=== PATIENT | male | born 1975 | race Caucasian/White ===

== ENCOUNTER 2018-11-20 09:00 | Inpatient (IN) | payer MEDICAID ==
--- NOTE | 2018-11-20 09:34 | EDM.PDOC ---
ED HPI GENERAL MEDICAL PROBLEM - General Chief Complaint: Abdominal Pain Stated Complaint: PANCREATITIS Time Seen by Provider: 11/20/18 09:20 Source of Information: Reports: Patient History Limitations: Reports: No Limitations - History of Present Illness INITIAL COMMENTS - FREE TEXT/NARRATIVE: 43-year-old male who is been in detox for the last 2 days, has developed abdominal pain for the past 36-48 hours. He has a history of pancreatitis in the past, usually when he gets that he just "starts drinking again and it goes away". He is going to start long-term treatment tomorrow, he was sent in to rule out pancreatitis before extending his treatment. No nausea or vomiting, no fever. Onset: Gradual Duration: Day(s): (2 days) Location: Reports: Abdomen (Generalized abdominal pain, somewhat worse in the upper abdomen) Associated Symptoms: Reports: Malaise. Denies: Cough, Fever/Chills Abdominal Pain Score (Numeric/FACES): 6 - Related Data Allergies Allergy/AdvReac Type Severity Reaction Status Date / Time No Known Allergies Allergy Verified 11/20/18 09:39 Home Meds: Home Meds Aspirin [Lo-Dose Aspirin EC] 81 mg PO DAILY 11/20/18 [History] NIFEdipine [Nifedical XL] 60 mg PO DAILY 11/20/18 [History] Naltrexone 50 mg PO DAILY 11/20/18 [History] Ramipril [Altace] 5 mg PO DAILY 11/20/18 [History] ED ROS GENERAL - Review of Systems Review Of Systems: See Below Constitutional: Denies: Fever, Chills HEENT: Denies: Vision Change Respiratory: Denies: Shortness of Breath GI/Abdominal: Reports: Abdominal Pain : Reports: No Symptoms Skin: Reports: No Symptoms Neurological: Denies: Headache ED EXAM, GI/ABD - Physical Exam Exam: See Below Exam Limited By: No Limitations General Appearance: Alert, No Apparent Distress (Looks uncomfortable but not distressed) Eyes: Bilateral: Normal Appearance (No jaundice) Respiratory/Chest: No Respiratory Distress, Lungs Clear GI/Abdominal Exam: Tender (Reacts with tenderness to palpation with mild guarding across the upper abdomen, no distention or ascites) Course - Vital Signs Last Recorded V/S: Last Vital Signs Temp 96.8 F 11/20/18 11:41 Pulse 69 11/20/18 11:41 Resp 16 11/20/18 11:41 BP 118/88 11/20/18 11:41 Pulse Ox 97 11/20/18 11:41 - Orders/Labs/Meds Orders: Active Orders 24 hr Category Date Time Status Patient Status [ADT] Routine ADT 11/20/18 11:40 Active Antiembolic Devices [RC] .Routine Care 11/20/18 11:40 Active Intake and Output [RC] QSHIFT Care 11/20/18 11:40 Active Notify Provider Vital Signs [RC] ASDIRECTED Care 11/20/18 11:40 Active Oxygen Therapy [RC] PRN Care 11/20/18 11:40 Active Up ad Liz [RC] ASDIRECTED Care 11/20/18 11:40 Active VTE/DVT Education [RC] Per Unit Routine Care 11/20/18 11:40 Active Vital Signs [RC] Q4H Care 11/20/18 11:40 Active Nothing per Oral Now Diet [DIET] Diet 11/20/18 Lunch Active CBC W/O DIFF,HEMOGRAM [HEME] AM Lab 11/21/18 05:11 Ordered COMPREHENSIVE METABOLIC PN,CMP [CHEM] AM Lab 11/21/18 05:11 Ordered LIPASE [CHEM] AM Lab 11/21/18 05:11 Ordered Acetaminophen [Tylenol] Med 11/20/18 11:40 Active 650 mg PO Q4H PRN Aspirin [Halfprin] Med 11/21/18 09:00 Active 81 mg PO DAILY Dextrose 5%-Lact Ringers w/KCl [D5 LR with 20 mEq KCl] Med 11/20/18 11:40 Active 1,000 ml IV ASDIRECTED Docusate Sodium/Sennosides [Senna Plus] Med 11/20/18 11:40 Active 1 tab PO BID PRN Folic Acid Med 11/21/18 09:00 Active 1 mg PO DAILY Ketorolac [Toradol] Med 11/20/18 10:27 Active 30 mg IVPUSH Q6H PRN LORazepam [Ativan] Med 11/20/18 11:40 Active 0.5 mg IVPUSH Q4H PRN MVI, Adult with Vitamin K [Infuvite Adult] 10 ml Med 11/20/18 10:06 Active Thiamine [Vitamin B-1] 200 mg Chromium/Copper/David/Selen/Zn [Multitrace-5 Concentrate ] 1 ml Lactated Ringers [Ringers, Lactated] 1,000 ml IV ONETIME Magnesium Hydroxide [Milk of Magnesia] Med 11/20/18 11:40 Active 30 ml PO Q12H PRN Melatonin Med 11/20/18 11:40 Ordered 9 mg PO BEDTIME PRN NIFEdipine [Procardia XL] Med 11/21/18 09:00 Ordered 60 mg PO DAILY Nicotine [Habitrol] Med 11/20/18 11:40 Ordered 21 mg TRDERM DAILY Ondansetron [Zofran ODT] Med 11/20/18 11:40 Ordered 4 mg PO Q6H PRN Ondansetron [Zofran] Med 11/20/18 11:40 Ordered 4 mg IV Q6H PRN Pantoprazole [ProTONIX IV] Med 11/20/18 11:40 Ordered 40 mg IV Q24H Potassium Chloride 20 meq Med 11/20/18 11:40 Ordered Lidocaine 1% [Xylocaine 1%] 2 ml Sodium Chloride 0.9% [Normal Saline] 100 ml IV Q2H Ramipril [Altace] Med 11/21/18 09:00 Ordered 5 mg PO DAILY Thiamine [Vitamin B-1] Med 11/21/18 09:00 Ordered 100 mg PO DAILY oxyCODONE Med 11/20/18 11:40 Ordered 5 mg PO Q4H PRN traZODone Med 11/20/18 11:40 Ordered 50 mg PO BEDTIME PRN Sequential Compression Device [OM.PC] Routine Oth 11/20/18 11:40 Ordered Resuscitation Status Routine Resus Stat 11/20/18 10:29 Ordered Medication Orders Acetaminophen (Tylenol) 650 mg PO Q4H PRN PRN Reason: Pain (Mild 1-3)/fever Aspirin (Halfprin) 81 mg PO DAILY [facility] Folic Acid (Folic Acid) 1 mg PO DAILY [facility] Multivitamins/Minerals 10 ml/Thiamine HCl 200 mg/ Chromium/Copper/Manganese/ Seleni/Zn 1 ml/ Lactated Ringer's 1,013 mls @ 500 mls/hr IV ONETIME ONE Stop: 11/20/18 12:07 Last Admin: 11/20/18 10:24 Dose: 500 mls/hr Potassium Cl/Dextrose/Lact Ringer's (D5 Lr With 20 Meq Kcl) 1,000 mls @ 100 mls /hr IV ASDIRECTED [facility] Potassium Chloride 20 meq/Lidocaine HCl 2 ml/ Sodium Chloride 112 mls @ 50 mls/ hr IV Q2H [facility] Stop: 11/20/18 15:39 Ketorolac Tromethamine (Toradol) 30 mg IVPUSH Q6H PRN PRN Reason: Pain (moderate 4-6) Stop: 11/25/18 10:27 Last Admin: 11/20/18 10:33 Dose: 30 mg Lorazepam (Ativan) 0.5 mg IVPUSH Q4H PRN PRN Reason: Anxiety Magnesium Hydroxide (Milk Of Magnesia) 30 ml PO Q12H PRN PRN Reason: Constipation Melatonin (Melatonin) 9 mg PO BEDTIME PRN PRN Reason: Sleep Nicotine (Habitrol) 21 mg TRDERM DAILY [facility] Non-Formulary Medication (Nifedipine [Procardia Xl]) 60 mg PO DAILY [facility] Non-Formulary Medication (Ramipril [Altace]) 5 mg PO DAILY [facility] Ondansetron HCl (Zofran Odt) 4 mg PO Q6H PRN PRN Reason: Nausea able to take PO Ondansetron HCl (Zofran) 4 mg IV Q6H PRN PRN Reason: Nausea/Vomiting Oxycodone HCl (Oxycodone) 5 mg PO Q4H PRN PRN Reason: Pain (moderate 4-6) Pantoprazole Sodium (Protonix Iv) 40 mg IV Q24H [facility] Senna/Docusate Sodium (Senna Plus) 1 tab PO BID PRN PRN Reason: Constipation Thiamine HCl (Vitamin B-1) 100 mg PO DAILY [facility] Trazodone HCl (Trazodone) 50 mg PO BEDTIME PRN PRN Reason: Sleep Labs: Laboratory Tests 11/20/18 11/20/18 Range/Units 09:37 09:37 WBC 7.9 (4.5-11.0) K/uL RBC 4.38 (4.30-5.90) M/uL Hgb 14.8 (12.0-15.0) g/dL Hct 44.2 (40.0-54.0) % MCV 101 H (80-98) fL MCH 34 H (27-31) pg MCHC 34 (32-36) % Plt Count 156 (150-400) K/uL Neut % (Auto) 66 (36-66) % Lymph % (Auto) 17 L (24-44) % [place] % (Auto) 15 H (2-6) % Eos % (Auto) 2 (2-4) % Baso % (Auto) 0 (0-1) % Sodium 135 L (140-148) mmol/L Potassium 3.6 (3.6-5.2) mmol/L Chloride 94 L (100-108) mmol/L Carbon Dioxide 30 (21-32) mmol/L Anion Gap 14.6 H (5.0-14.0) mmol/L BUN 7 (7-18) mg/dL Creatinine 0.7 L (0.8-1.3) mg/dL Est Cr Clr Drug Dosing 127.22 mL/min Estimated GFR (MDRD) > 60 (>60) Glucose 110 H (74-106) mg/dL Calcium 9.6 (8.5-10.1) mg/dL Total Bilirubin 0.9 (0.2-1.0) mg/dL AST 105 H (15-37) U/L ALT 135 H (12-78) U/L Alkaline Phosphatase 144 H (46-116) U/L Total Protein 7.8 (6.4-8.2) g/dL Albumin 3.4 (3.4-5.0) g/dL Globulin 4.4 H (2.3-3.5) g/dL Albumin/Globulin Ratio 0.8 L (1.2-2.2) Amylase 364 H (25-115) U/L Lipase 3331 H (73-393) U/L Meds: Medications Generic Name Dose Route Start Last Admin Trade Name Freq PRN Reason Stop Dose Admin Acetaminophen 650 mg 11/20/18 11:40 Tylenol PO Q4H PRN Pain (Mild 1-3)/fever Aspirin 81 mg 11/21/18 09:00 Halfprin PO DAILY [facility] Folic Acid 1 mg 11/21/18 09:00 Folic Acid PO DAILY [facility] Multivitamins/Minerals 10 ml/ 1,013 mls @ 500 mls/hr 11/20/18 10:06 11/20/18 10:24 Thiamine HCl 200 mg/ Chromium/ IV 11/20/18 12:07 500 mls/hr Copper/Manganese/Seleni/Zn 1 ONETIME ONE Administration ml/ Lactated Ringer's Potassium Cl/Dextrose/Lact Ringer's 1,000 mls @ 100 mls/hr 11/20/18 11:40 D5 Lr With 20 Meq Kcl IV ASDIRECTED [facility] Potassium Chloride 20 meq/ 112 mls @ 50 mls/hr 11/20/18 11:40 Lidocaine HCl 2 ml/ Sodium IV 11/20/18 15:39 Chloride Q2H [facility] Ketorolac Tromethamine 30 mg 11/20/18 10:27 11/20/18 10:33 Toradol IVPUSH 11/25/18 10:27 30 mg Q6H PRN Administration Pain (moderate 4-6) Lorazepam 0.5 mg 11/20/18 11:40 Ativan IVPUSH Q4H PRN Anxiety Magnesium Hydroxide 30 ml 11/20/18 11:40 Milk Of Magnesia PO Q12H PRN Constipation Melatonin 9 mg 11/20/18 11:40 Melatonin PO BEDTIME PRN Sleep Nicotine 21 mg 11/20/18 11:40 Habitrol TRDERM DAILY [facility] Non-Formulary Medication 60 mg 11/21/18 09:00 Nifedipine [Procardia Xl] PO DAILY [facility] Non-Formulary Medication 5 mg 11/21/18 09:00 Ramipril [Altace] PO DAILY [facility] Ondansetron HCl 4 mg 11/20/18 11:40 Zofran Odt PO Q6H PRN Nausea able to take PO Ondansetron HCl 4 mg 11/20/18 11:40 Zofran IV Q6H PRN Nausea/Vomiting Oxycodone HCl 5 mg 11/20/18 11:40 Oxycodone PO Q4H PRN Pain (moderate 4-6) Pantoprazole Sodium 40 mg 11/20/18 11:40 Protonix Iv IV Q24H [facility] Senna/Docusate Sodium 1 tab 11/20/18 11:40 Senna Plus PO BID PRN Constipation Thiamine HCl 100 mg 11/21/18 09:00 Vitamin B-1 PO DAILY [facility] Trazodone HCl 50 mg 11/20/18 11:40 Trazodone PO BEDTIME PRN Sleep - Re-Assessments/Exams Free Text/Narrative Re-Assessment/Exam: 11/20/18 09:34 CBC, CMP, amylase and lipase were obtained. 11/20/18 11:47 White count and hemoglobin were normal, however LFTs were diffusely mildly elevated and lipase was significantly elevated at 3331. 1 L of LR with multivitamins were initiated at 500 mL an hour, and the hospitalist service was consulted for admission. Departure - Departure Time of Disposition: 11:04 Disposition: Admitted As Inpatient 66 Clinical Impression: Acute pancreatitis Qualifiers: Pancreatitis type: alcohol induced Acute pancreatitis complication: no infection or necrosis Qualified Code(s): K85.20 - Alcohol induced acute pancreatitis without necrosis or infection - Discharge Information - My Orders Last 24 Hours: My Active Orders 11/20/18 10:06 MVI, Adult with Vitamin K [Infuvite Adult] 10 ml Thiamine [Vitamin B-1] 200 mg Chromium/Copper/David/Selen/Zn [Multitrace-5 Concentrate] 1 ml Lactated Ringers [Ringers, Lactated] 1,000 ml IV ONETIME - Assessment/Plan Last 24 Hours: My Active Orders 11/20/18 10:06 MVI, Adult with Vitamin K [Infuvite Adult] 10 ml Thiamine [Vitamin B-1] 200 mg Chromium/Copper/David/Selen/Zn [Multitrace-5 Concentrate] 1 ml Lactated Ringers [Ringers, Lactated] 1,000 ml IV ONETIME
[2018-11-20] MEDS ORDERED: MVI, Adult with Vitamin K 10 ML, Thiamine 200 MG, Chromium/Copper/Mang/Selen/Zn 1 ML in... IV ONE ×4 (10:06)
[2018-11-20] MEDS: Ketorolac 30 MG/ML SDV IVPUSH PRN ×3 (10:33→22:48)
--- NOTE | 2018-11-20 10:42 | PCM.HP ---
H&P History of Present Illness - General Date of Service: 11/20/18 Admit Problem/Dx: Admission Diagnosis/Problem Admission Diagnosis/Problem Acute pancreatitis Source of Information: Patient, Provider History Limitations: Reports: No Limitations - History of Present Illness Initial Comments - Free Text/Narative: CC: under my sternum hurlaura HPI: Suresh presents to the emergency room today from [facility] with complaints of abdominal pain that has been present and worsening over the past 36 hours. Initially the pain was sharp but mild and located in the epigastric area. The pain has progressed to the point that it is severe and nearly constant. It radiates to both the left and right portions of the upper abdomen. The pain is worse with any sort of movement or coughing. Pain is a little better when he lays on his left side and when he uses a hot water bottle over the painful area. He had a similar episode 2 months ago and was in the hospital for a few days. He does not feel short of breath. He has not had any fevers. No change in bowel or bladder habits. He has been drinking about one case of beer per day since he got out of the hospital 2 months ago. His last drink was Sunday morning, 2 days ago. He has been in detox for the past 2 days. He does not feel that he is experiencing alcohol withdrawal at this time. He does smoke about 2 packs of cigarettes per day. Workup in the emergency room was suggestive of pancreatitis with elevated amylase and lipase. His white count is normal. Vital signs are stable. He is receiving a multivitamin bag and will be admitted for further management of pancreatitis. Abdominal Pain Score (Numeric/FACES): 6 - Related Data Allergies/Adverse Reactions: Allergies Allergy/AdvReac Type Severity Reaction Status Date / Time No Known Allergies Allergy Verified 11/20/18 09:39 Home Medications: Home Meds Aspirin [Lo-Dose Aspirin EC] 81 mg PO DAILY 11/20/18 [History] NIFEdipine [Nifedical XL] 60 mg PO DAILY 11/20/18 [History] Naltrexone 50 mg PO DAILY 11/20/18 [History] Ramipril [Altace] 5 mg PO DAILY 11/20/18 [History] Past Medical History Cardiovascular History: Reports: Blood Clots/VTE/DVT, Heart Murmur, Hypertension Respiratory History: Reports: Other (See Below) Other Respiratory History: PE 2016 Gastrointestinal History: Reports: GERD, Pancreatitis, Other (See Below) Other Gastrointestinal History: Elevated liver test Musculoskeletal History: Reports: Back Pain, Chronic, Fracture Other Musculoskeletal History: wrist ankle jaw Neurological History: Reports: Migraines Psychiatric History: Reports: Addiction, Anxiety, Depression Social & Family History - Family History Cardiac: Reports: Pacemaker (sister at 27) - Tobacco Use Smoking Status *Q: Current Every Day Smoker Years of Tobacco use: 27 Packs/Tins Daily: 2 - Caffeine Use Caffeine Use: Reports: Soda - Alcohol Use Date of Last Drink: 11/18/18 - Recreational Drug Use Recreational Drug Type: Reports: Marijuana/Hashish, Methamphetamine Recreational Drug Use Frequency: Rarely H&P Review of Systems - Review of Systems: Review Of Systems: See Below Free Text/Narrative: A complete 12 point review of systems was obtained. Pertinent positives and negatives are noted in the history of present illness. All other systems were reviewed and were negative except as noted. Exam - Exam Exam: See Below - Vital Signs Vital Signs: Last Vital Signs Temp 35.6 C 11/20/18 09:38 Pulse 87 11/20/18 09:38 Resp 14 11/20/18 09:38 BP 139/100 H 11/20/18 09:38 Pulse Ox 98 11/20/18 09:38 Weight: 69.2 kg - Exam Quality Assessment: No: Supplemental Oxygen General: Alert, Oriented, Cooperative, Mild Distress HEENT: Conjunctiva Clear. No: Mucosa Moist & High [place] (dry), Scleral Icterus Neck: Supple, Trachea Midline. No: Lymphadenopathy Lungs: Clear to Auscultation, Normal Respiratory Effort Cardiovascular: Regular Rate, Regular Rhythm. No: Systolic Murmur GI/Abdominal Exam: Soft, No Distention, Guarding, Tender (epigastrium ), Abnormal Bowel Sounds (hypoactive) Extremities: No Pedal Edema, Joint Swelling (right ankle). No: Increased Warmth Peripheral Pulses: 2+: Dorsalis Pedis (L), Dorsalis Pedis (R) Skin: Warm, Dry, Ecchymosis (medial and lateral right ankle) Neuro Extensive - Mental Status: Alert, Oriented x3, Nl Response to Commands Neuro Extensive - Motor, Sensory, Reflexes: No: Dysarthria, Abnormal Motor, Tremor Psychiatric: Alert, Normal Affect - Patient Data Lab Results Last 24 hrs: Laboratory Results - last 24 hr 11/20/18 11/20/18 Range/Units 09:37 09:37 WBC 7.9 (4.5-11.0) K/uL RBC 4.38 (4.30-5.90) M/uL Hgb 14.8 (12.0-15.0) g/dL Hct 44.2 (40.0-54.0) % MCV 101 H (80-98) fL MCH 34 H (27-31) pg MCHC 34 (32-36) % Plt Count 156 (150-400) K/uL Neut % (Auto) 66 (36-66) % Lymph % (Auto) 17 L (24-44) % [place] % (Auto) 15 H (2-6) % Eos % (Auto) 2 (2-4) % Baso % (Auto) 0 (0-1) % Sodium 135 L (140-148) mmol/L Potassium 3.6 (3.6-5.2) mmol/L Chloride 94 L (100-108) mmol/L Carbon Dioxide 30 (21-32) mmol/L Anion Gap 14.6 H (5.0-14.0) mmol/L BUN 7 (7-18) mg/dL Creatinine 0.7 L (0.8-1.3) mg/dL Est Cr Clr Drug Dosing 127.22 mL/min Estimated GFR (MDRD) > 60 (>60) Glucose 110 H (74-106) mg/dL Calcium 9.6 (8.5-10.1) mg/dL Total Bilirubin 0.9 (0.2-1.0) mg/dL AST 105 H (15-37) U/L ALT 135 H (12-78) U/L Alkaline Phosphatase 144 H (46-116) U/L Total Protein 7.8 (6.4-8.2) g/dL Albumin 3.4 (3.4-5.0) g/dL Globulin 4.4 H (2.3-3.5) g/dL Albumin/Globulin Ratio 0.8 L (1.2-2.2) Amylase 364 H (25-115) U/L Lipase 3331 H (73-393) U/L Result Diagrams: 11/20/18 09:37 11/20/18 09:37 *Q Meaningful Use (ADM) - VTE Risk Assess *Q Each Risk Factor Represents 1 Point: Age 41 - 59 years Total Score 1 Point Risk Factors: 1 Each Risk Factor Represents 2 Points: None Total Score 2 Point Risk Factors: 0 Each Risk Factor Represents 3 Points: None Total Score 3 Point Risk Factors: 0 Each Risk Factor Represents 5 Points: None Total Score 5 Point Risk Factors: 0 Venous Thromboembolism Risk Factor Score *Q: 1 - Problem List (1) Acute pancreatitis SNOMED Code(s): 803093354 ICD Code: K85.90 - ACUTE PANCREATITIS WITHOUT NECROSIS OR INFECTION, UNSP Status: Acute Current Visit: Yes Qualifiers: Pancreatitis type: alcohol induced Acute pancreatitis complication: no infection or necrosis Qualified Code(s): K85.20 - Alcohol induced acute pancreatitis without necrosis or infection (2) Alcohol dependence SNOMED Code(s): 93511866 ICD Code: F10.20 - ALCOHOL DEPENDENCE, UNCOMPLICATED Status: Chronic Current Visit: Yes Qualifiers: Substance use status: uncomplicated Qualified Code(s): F10.20 - Alcohol dependence, uncomplicated (3) Tobacco dependence SNOMED Code(s): 60531034 ICD Code: F17.200 - NICOTINE DEPENDENCE, UNSPECIFIED, UNCOMPLICATED Status : Chronic Current Visit: Yes Problem List Initiated/Reviewed/Updated: Yes Orders Last 24hrs: Active Orders 24 hr Category Date Time Status Patient Status Manage Transfer [TRANSFER] Routine ADT 11/20/18 10:28 Ordered Ketorolac [Toradol] Med 11/20/18 10:27 Active 30 mg IVPUSH Q6H PRN MVI, Adult with Vitamin K [Infuvite Adult] 10 ml Med 11/20/18 10:06 Active Thiamine [Vitamin B-1] 200 mg Chromium/Copper/David/Selen/Zn [Multitrace-5 Concentrate ] 1 ml Lactated Ringers [Ringers, Lactated] 1,000 ml IV ONETIME Resuscitation Status Routine Resus Stat 11/20/18 10:29 Ordered Medication Orders Multivitamins/Minerals 10 ml/Thiamine HCl 200 mg/ Chromium/Copper/Manganese/ Seleni/Zn 1 ml/ Lactated Ringer's 1,013 mls @ 500 mls/hr IV ONETIME ONE Stop: 11/20/18 12:07 Last Admin: 11/20/18 10:24 Dose: 500 mls/hr Ketorolac Tromethamine (Toradol) 30 mg IVPUSH Q6H PRN PRN Reason: Pain (moderate 4-6) Stop: 11/25/18 10:27 Last Admin: 11/20/18 10:33 Dose: 30 mg Assessment/Plan Comment:: ASSESSMENT AND PLAN - Acute pancreatitis - alcohol-induced. History of similar about 2 months ago. Significant pain at this time. Able to tolerate water but has not had any food in a couple of days. Vitals are stable. -IV fluids -Symptomatic management of pain and nausea -Repeat lipase in the morning Alcohol dependence - long history of heavy alcohol use. He was sent here from detox. The plan was for him to transition to inpatient treatment tomorrow but this will be on hold until he recovers from his pancreatitis. -Outpatient alcohol treatment when stable Tobacco dependence - no interest in quitting at this time. -Nicotine patch -Encourage cessation Maintenance issues - - DVT prophylaxis - mechanical - GI prophylaxis - PPI - Nutrition - nothing by mouth - Hooper catheter - not indicated CODE STATUS - full code Admission justification - This patient will be admitted for inpatient services and is medically appropriate meeting medical necessity for inpatient admission as outlined in my documentation. I reasonably expect the patient will require inpatient services that span a period time over 2 midnights. I reasonably expect this patient to be discharged or transferred within 96 hours [facility]. Disposition - I would anticipate discharge to inpatient treatment after the hospital stay Primary care physician - no local primary care Javier Blake M.D.
[2018-11-20] MEDS ORDERED: Ondansetron 4 MG/2 ML SDV IV PRN (11:40)
[2018-11-20] MEDS ORDERED: LORazepam 2 MG/ML SDV IVPUSH PRN (11:40)
[2018-11-20] MEDS ORDERED: Melatonin 3 MG Tab PO PRN (11:40)
[2018-11-20] MEDS ORDERED: Ondansetron 4 MG Tab.DIS PO PRN (11:40)
[2018-11-20] MEDS: oxyCODONE 5 MG Tab PO PRN ×3 (12:07→20:36)
[2018-11-20] MEDS: Acetaminophen 325 MG Tab PO PRN (12:07)
[2018-11-20] MEDS: Pantoprazole 40 MG Vial IV SCH (12:09)
[2018-11-20] MEDS: Nicotine 21 MG/24 Hr Patch TRDERM SCH (12:10)
[2018-11-20] MEDS: Dextrose 5%-Lact Ringers w/KCl 1,000 ML IV SCH ×2 (13:20→23:00)
[2018-11-20] MEDS: Potassium Chloride 20 MEQ, Lidocaine 1% 2 ML in Sodium Chloride 0.9% 100 ML IV SCH ×2 (13:21→15:15)
[2018-11-20] MEDS: traZODone 50 MG Tab PO PRN (22:56)
[2018-11-21] MEDS: oxyCODONE 5 MG Tab PO PRN ×3 (00:40→08:39)
[2018-11-21] MEDS: Ketorolac 30 MG/ML SDV IVPUSH PRN ×4 (04:38→23:51)
[2018-11-21] MEDS: Nicotine 21 MG/24 Hr Patch TRDERM SCH (08:27)
[2018-11-21] MEDS: NIFEdipine 30 MG Tab.ER PO SCH (08:28)
[2018-11-21] MEDS: Thiamine 100 MG Tab PO SCH (08:29)
[2018-11-21] MEDS: Folic Acid 1 MG Tab PO SCH (08:29)
[2018-11-21] MEDS: Aspirin 81 MG Tab.EC PO SCH (08:29)
[2018-11-21] MEDS: Acetaminophen 325 MG Tab PO PRN (08:40)
[2018-11-21] MEDS: Dextrose 5%-Lact Ringers w/KCl 1,000 ML IV SCH ×2 (09:33→19:38)
[2018-11-21] MEDS: fentaNYL 100 MCG/2 ML SDV IVPUSH PRN ×2 (09:51→13:26)
--- NOTE | 2018-11-21 09:57 | PCM.PN ---
- General Info Date of Service: 11/21/18 Subjective Update: there were no acute events overnight but the patient does report suboptimal pain control with Toradol and oxycodone. He rates his pain at 10 out of 10 at this time. No complaints of nausea. Lipase level is higher today at more than 5500. He is interested in trying an intravenous narcotic because of the severity of the pain. no shortness of breath or fever. Functional Status: Denies: Pain Controlled - Review of Systems General: Denies: Fever Gastrointestinal: Reports: Abdominal Pain - Patient Data Vitals - Most Recent: Last Vital Signs Temp 35.9 C 11/21/18 06:47 Pulse 58 L 11/21/18 06:47 Resp 18 11/21/18 06:47 BP 161/85 H 11/21/18 08:31 Pulse Ox 97 11/21/18 06:47 Weight - Most Recent: 69.2 kg I&O - Last 24 Hours: Intake & Output 11/20/18 11/21/18 11/21/18 22:59 06:59 14:59 Intake Total 552 1215 Output Total 300 450 280 Balance 252 765 -280 Lab Results Last 24 Hours: Laboratory Results - last 24 hr 11/20/18 11/21/18 11/21/18 Range/Units 09:37 04:23 04:23 WBC 8.4 (4.5-11.0) K/uL RBC 4.01 L (4.30-5.90) M/uL Hgb 13.2 (12.0-15.0) g/dL Hct 40.8 (40.0-54.0) % MCV 102 H (80-98) fL MCH 33 H (27-31) pg MCHC 32 (32-36) % Plt Count 138 L (150-400) K/uL Sodium 135 L 135 L (140-148) mmol/L Potassium 3.6 3.6 (3.6-5.2) mmol/L Chloride 94 L 99 L (100-108) mmol/L Carbon Dioxide 30 31 (21-32) mmol/L Anion Gap 14.6 H 8.6 (5.0-14.0) mmol/L BUN 7 6 L (7-18) mg/dL Creatinine 0.7 L 0.6 L (0.8-1.3) mg/dL Est Cr Clr Drug Dosing 127.22 148.42 mL/min Estimated GFR (MDRD) > 60 > 60 (>60) Glucose 110 H 128 H (74-106) mg/dL Calcium 9.6 8.9 (8.5-10.1) mg/dL Total Bilirubin 0.9 0.8 (0.2-1.0) mg/dL AST 105 H 62 H (15-37) U/L ALT 135 H 91 H (12-78) U/L Alkaline Phosphatase 144 H 121 H (46-116) U/L Total Protein 7.8 6.8 (6.4-8.2) g/dL Albumin 3.4 2.9 L (3.4-5.0) g/dL Globulin 4.4 H 3.9 H (2.3-3.5) g/dL Albumin/Globulin Ratio 0.8 L 0.7 L (1.2-2.2) Amylase 364 H (25-115) U/L Lipase 3331 H 5880 H (73-393) U/L Med Orders - Current: Current Medications Acetaminophen (Tylenol) 650 mg PO Q4H PRN PRN Reason: Pain (Mild 1-3)/fever Last Admin: 11/21/18 08:40 Dose: 650 mg Aspirin (Halfprin) 81 mg PO DAILY [facility] Last Admin: 11/21/18 08:29 Dose: 81 mg Fentanyl (Sublimaze) 25 mcg IVPUSH Q2H PRN PRN Reason: Pain (severe 7-10) Last Admin: 11/21/18 09:51 Dose: 25 mcg Folic Acid (Folic Acid) 1 mg PO DAILY [facility] Last Admin: 11/21/18 08:29 Dose: 1 mg Potassium Cl/Dextrose/Lact Ringer's (D5 Lr With 20 Meq Kcl) 1,000 mls @ 100 mls /hr IV ASDIRECTED [facility] Last Admin: 11/21/18 09:33 Dose: 100 mls/hr Ketorolac Tromethamine (Toradol) 30 mg IVPUSH Q6H PRN PRN Reason: Pain (moderate 4-6) Stop: 11/25/18 10:27 Last Admin: 11/21/18 04:38 Dose: 30 mg Lorazepam (Ativan) 0.5 mg IVPUSH Q4H PRN PRN Reason: Anxiety Magnesium Hydroxide (Milk Of Magnesia) 30 ml PO Q12H PRN PRN Reason: Constipation Melatonin (Melatonin) 9 mg PO BEDTIME PRN PRN Reason: Sleep Nicotine (Habitrol) 21 mg TRDERM DAILY [facility] Last Admin: 11/21/18 08:27 Dose: 21 mg Nifedipine (Procardia Xl) 60 mg PO DAILY [facility] Last Admin: 11/21/18 08:28 Dose: 60 mg Ondansetron HCl (Zofran Odt) 4 mg PO Q6H PRN PRN Reason: Nausea able to take PO Ondansetron HCl (Zofran) 4 mg IV Q6H PRN PRN Reason: Nausea/Vomiting Pantoprazole Sodium (Protonix Iv) 40 mg IV Q24H [facility] Last Admin: 11/20/18 12:09 Dose: 40 mg Ramipril (Altace) 5 mg PO DAILY [facility] Last Admin: 11/21/18 08:31 Dose: 5 mg Senna/Docusate Sodium (Senna Plus) 1 tab PO BID PRN PRN Reason: Constipation Thiamine HCl (Vitamin B-1) 100 mg PO DAILY [facility] Last Admin: 11/21/18 08:29 Dose: 100 mg Trazodone HCl (Trazodone) 50 mg PO BEDTIME PRN PRN Reason: Sleep Last Admin: 11/20/18 22:56 Dose: 50 mg Discontinued Medications Multivitamins/Minerals 10 ml/Thiamine HCl 200 mg/ Chromium/Copper/Manganese/ Seleni/Zn 1 ml/ Lactated Ringer's 1,013 mls @ 500 mls/hr IV ONETIME ONE Stop: 11/20/18 12:07 Last Admin: 11/20/18 10:24 Dose: 500 mls/hr Potassium Chloride 20 meq/Lidocaine HCl 2 ml/ Sodium Chloride 112 mls @ 50 mls/ hr IV Q2H [facility] Stop: 11/20/18 16:59 Last Admin: 11/20/18 15:15 Dose: 50 mls/hr Oxycodone HCl (Oxycodone) 5 mg PO Q4H PRN PRN Reason: Pain (moderate 4-6) Last Admin: 11/21/18 08:39 Dose: 5 mg - Exam Quality Assessment: No: Supplemental Oxygen General: Alert, Oriented, Cooperative, Mild Distress Lungs: Normal Respiratory Effort Cardiovascular: Regular Rate, Regular Rhythm GI/Abdominal Exam: Soft, No Distention Extremities: No Pedal Edema Psy/Mental Status: Alert, Normal Affect - Problem List & Annotations (1) Acute pancreatitis SNOMED Code(s): 940684320 Code(s): K85.90 - ACUTE PANCREATITIS WITHOUT NECROSIS OR INFECTION, UNSP Status: Acute Current Visit: Yes Qualifiers: Pancreatitis type: alcohol induced Acute pancreatitis complication: no infection or necrosis Qualified Code(s): K85.20 - Alcohol induced acute pancreatitis without necrosis or infection (2) Alcohol dependence SNOMED Code(s): 90214329 Code(s): F10.20 - ALCOHOL DEPENDENCE, UNCOMPLICATED Status: Chronic Current Visit: Yes Qualifiers: Substance use status: uncomplicated Qualified Code(s): F10.20 - Alcohol dependence, uncomplicated (3) Tobacco dependence SNOMED Code(s): 54167033 Code(s): F17.200 - NICOTINE DEPENDENCE, UNSPECIFIED, UNCOMPLICATED Status: Chronic Current Visit: Yes - Problem List Review Problem List Initiated/Reviewed/Updated: Yes - My Orders Last 24 Hours: My Active Orders 11/20/18 10:27 Ketorolac [Toradol] 30 mg IVPUSH Q6H PRN 11/20/18 10:29 Resuscitation Status Routine 11/20/18 11:40 Patient Status [ADT] Routine Antiembolic Devices [RC] .Routine Intake and Output [RC] QSHIFT Notify Provider Vital Signs [RC] ASDIRECTED Oxygen Therapy [RC] PRN Up ad Liz [RC] ASDIRECTED VTE/DVT Education [RC] Per Unit Routine Vital Signs [RC] Q4H Acetaminophen [Tylenol] 650 mg PO Q4H PRN Dextrose 5%-Lact Ringers w/KCl [D5 LR with 20 mEq KCl] 1,000 ml IV ASDIRECTED Docusate Sodium/Sennosides [Senna Plus] 1 tab PO BID PRN LORazepam [Ativan] 0.5 mg IVPUSH Q4H PRN Magnesium Hydroxide [Milk of Magnesia] 30 ml PO Q12H PRN Melatonin 9 mg PO BEDTIME PRN Ondansetron [Zofran ODT] 4 mg PO Q6H PRN Ondansetron [Zofran] 4 mg IV Q6H PRN traZODone 50 mg PO BEDTIME PRN Sequential Compression Device [OM.PC] Routine 11/20/18 13:00 Nicotine [Habitrol] 21 mg TRDERM DAILY Pantoprazole [ProTONIX IV] 40 mg IV Q24H 11/20/18 Lunch Nothing per Oral Now Diet [DIET] 11/21/18 09:00 Aspirin [Halfprin] 81 mg PO DAILY Folic Acid 1 mg PO DAILY NIFEdipine [Procardia XL] 60 mg PO DAILY Ramipril [Altace] 5 mg PO DAILY Thiamine [Vitamin B-1] 100 mg PO DAILY 11/21/18 09:33 fentaNYL [Sublimaze] 25 mcg IVPUSH Q2H PRN 11/21/18 10:00 Potassium Chloride 20 MEQ,Lidocaine 1% 2 ML IN 100ML NS @ 50 MLS/HR Potassium Chloride 20 meq Lidocaine 1% [Xylocaine 1%] 2 ml Sodium Chloride 0.9% [Normal Saline] 100 ml IV Q2H 11/22/18 05:00 BASIC METABOLIC PANEL,BMP [CHEM] Timed LIPASE [CHEM] Timed MAGNESIUM [CHEM] Timed - Plan Plan:: ASSESSMENT AND PLAN - Acute pancreatitis - alcohol-induced. History of similar about 2 months ago. suboptimal pain control at this point. Lipase level has risen since yesterday. Vital signs have been stable. -continue IV fluids -Symptomatic management of pain and nausea, starting trial of fentanyl this morning -Repeat lipase in the morning Alcohol dependence - long history of heavy alcohol use. He will return for inpatient alcohol treatment after his hospital stay. -Outpatient alcohol treatment when stable Tobacco dependence - no interest in quitting at this time. -Nicotine patch -Encourage cessation Maintenance issues - - DVT prophylaxis - mechanical - GI prophylaxis - PPI - Nutrition - nothing by mouth Disposition - I would anticipate discharge to inpatient treatment after the hospital stay Primary care physician - no local primary care Javier Blake M.D.
[2018-11-21] MEDS: Potassium Chloride 20 MEQ, Lidocaine 1% 2 ML in Sodium Chloride 0.9% 100 ML IV SCH ×2 (11:12→13:21)
[2018-11-21] MEDS: Pantoprazole 40 MG Vial IV SCH (13:19)
[2018-11-21] MEDS ORDERED: fentaNYL 100 MCG/2 ML SDV IVPUSH PRN (15:51)
[2018-11-21] MEDS: Gabapentin 400 MG Cap PO SCH ×2 (18:09→20:54)
[2018-11-21] MEDS: traZODone 50 MG Tab PO PRN (20:52)
[2018-11-22] MEDS: Dextrose 5%-Lact Ringers w/KCl 1,000 ML IV SCH ×2 (05:44→16:19)
[2018-11-22] MEDS: Ketorolac 30 MG/ML SDV IVPUSH PRN ×3 (07:44→22:19)
[2018-11-22] MEDS: HYDROmorphone 1 MG/ML Syringe IVPUSH PRN ×5 (07:47→20:01)
[2018-11-22] MEDS: Aspirin 81 MG Tab.EC PO SCH (09:15)
[2018-11-22] MEDS: Thiamine 100 MG Tab PO SCH (09:16)
[2018-11-22] MEDS: NIFEdipine 30 MG Tab.ER PO SCH (09:16)
[2018-11-22] MEDS: Nicotine 21 MG/24 Hr Patch TRDERM SCH (09:16)
[2018-11-22] MEDS: Gabapentin 400 MG Cap PO SCH ×3 (09:16→20:04)
[2018-11-22] MEDS: Folic Acid 1 MG Tab PO SCH (09:16)
--- NOTE | 2018-11-22 09:46 | PCM.PN ---
- General Info Date of Service: 11/22/18 Subjective Update: No acute events overnight. Initially in the evenings pain with suboptimally controlled but patient reports much better pain control now that he is using a combination of Toradol and gabapentin. Pain is down to about 4 out of 10 on the pain scale. No significant nausea or vomiting. Lipase level is much better today and is down to about 3700. No evidence for alcohol withdrawal. Vital signs have been stable. Functional Status: Reports: Pain Controlled - Review of Systems General: Denies: Fever Gastrointestinal: Reports: Abdominal Pain. Denies: Nausea - Patient Data Vitals - Most Recent: Last Vital Signs Temp 36.4 C 11/22/18 06:53 Pulse 68 11/22/18 06:53 Resp 18 11/22/18 06:53 BP 111/77 11/22/18 09:16 Pulse Ox 95 11/22/18 06:53 Weight - Most Recent: 69.2 kg I&O - Last 24 Hours: Intake & Output 11/21/18 11/22/18 11/22/18 22:59 06:59 14:59 Intake Total 1150 1124 Output Total 700 1000 Balance 450 1124 -1000 Lab Results Last 24 Hours: Laboratory Results - last 24 hr 11/22/18 Range/Units 05:42 Sodium 136 L (140-148) mmol/L Potassium 4.2 (3.6-5.2) mmol/L Chloride 99 L (100-108) mmol/L Carbon Dioxide 33 H (21-32) mmol/L Anion Gap 8.2 (5.0-14.0) mmol/L BUN 4 L (7-18) mg/dL Creatinine 0.7 L (0.8-1.3) mg/dL Est Cr Clr Drug Dosing 126.90 mL/min Estimated GFR (MDRD) > 60 (>60) Glucose 106 (74-106) mg/dL Calcium 9.4 (8.5-10.1) mg/dL Magnesium 1.6 L (1.8-2.4) mg/dL Lipase 3762 H (73-393) U/L Med Orders - Current: Current Medications Acetaminophen (Tylenol) 650 mg PO Q4H PRN PRN Reason: Pain (Mild 1-3)/fever Last Admin: 11/21/18 08:40 Dose: 650 mg Aspirin (Halfprin) 81 mg PO DAILY [facility] Last Admin: 11/22/18 09:15 Dose: 81 mg Folic Acid (Folic Acid) 1 mg PO DAILY [facility] Last Admin: 11/22/18 09:16 Dose: 1 mg Gabapentin (Neurontin) 400 mg PO TID [facility] Last Admin: 11/22/18 09:16 Dose: 400 mg Hydromorphone HCl (Dilaudid) 1 mg IVPUSH Q2H PRN PRN Reason: Abdominal Pain Last Admin: 11/22/18 07:47 Dose: 1 mg Potassium Cl/Dextrose/Lact Ringer's (D5 Lr With 20 Meq Kcl) 1,000 mls @ 100 mls /hr IV ASDIRECTED [facility] Last Admin: 11/22/18 05:44 Dose: 100 mls/hr Magnesium Sulfate 2 gm/ Premix 50 mls @ 12.5 mls/hr IV Q6H [facility] Stop: 11/22/18 19:59 Ketorolac Tromethamine (Toradol) 30 mg IVPUSH Q6H PRN PRN Reason: Pain (moderate 4-6) Stop: 11/25/18 10:27 Last Admin: 11/22/18 07:44 Dose: 30 mg Lorazepam (Ativan) 0.5 mg IVPUSH Q4H PRN PRN Reason: Anxiety Magnesium Hydroxide (Milk Of Magnesia) 30 ml PO Q12H PRN PRN Reason: Constipation Melatonin (Melatonin) 9 mg PO BEDTIME PRN PRN Reason: Sleep Nicotine (Habitrol) 21 mg TRDERM DAILY [facility] Last Admin: 11/22/18 09:16 Dose: 21 mg Nifedipine (Procardia Xl) 60 mg PO DAILY [facility] Last Admin: 11/22/18 09:16 Dose: 60 mg Ondansetron HCl (Zofran Odt) 4 mg PO Q6H PRN PRN Reason: Nausea able to take PO Ondansetron HCl (Zofran) 4 mg IV Q6H PRN PRN Reason: Nausea/Vomiting Last Admin: 11/21/18 11:50 Dose: 4 mg Pantoprazole Sodium (Protonix Iv) 40 mg IV Q24H [facility] Last Admin: 11/21/18 13:19 Dose: 40 mg Ramipril (Altace) 5 mg PO DAILY [facility] Last Admin: 11/22/18 09:13 Dose: 5 mg Senna/Docusate Sodium (Senna Plus) 1 tab PO BID PRN PRN Reason: Constipation Thiamine HCl (Vitamin B-1) 100 mg PO DAILY [facility] Last Admin: 11/22/18 09:16 Dose: 100 mg Trazodone HCl (Trazodone) 50 mg PO BEDTIME PRN PRN Reason: Sleep Last Admin: 11/21/18 20:52 Dose: 50 mg Discontinued Medications Fentanyl (Sublimaze) 25 mcg IVPUSH Q2H PRN PRN Reason: Pain (severe 7-10) Last Admin: 11/21/18 13:26 Dose: 25 mcg Fentanyl (Sublimaze) 50 mcg IVPUSH Q2H PRN PRN Reason: Pain (severe 7-10) Last Admin: 11/21/18 16:00 Dose: 50 mcg Multivitamins/Minerals 10 ml/Thiamine HCl 200 mg/ Chromium/Copper/Manganese/ Seleni/Zn 1 ml/ Lactated Ringer's 1,013 mls @ 500 mls/hr IV ONETIME ONE Stop: 11/20/18 12:07 Last Admin: 11/20/18 10:24 Dose: 500 mls/hr Potassium Chloride 20 meq/Lidocaine HCl 2 ml/ Sodium Chloride 112 mls @ 50 mls/ hr IV Q2H [facility] Stop: 11/20/18 16:59 Last Admin: 11/20/18 15:15 Dose: 50 mls/hr Potassium Chloride 20 meq/Lidocaine HCl 2 ml/ Sodium Chloride 112 mls @ 50 mls/ hr IV Q2H [facility] Stop: 11/21/18 14:59 Last Admin: 11/21/18 13:21 Dose: 50 mls/hr Oxycodone HCl (Oxycodone) 5 mg PO Q4H PRN PRN Reason: Pain (moderate 4-6) Last Admin: 11/21/18 08:39 Dose: 5 mg - Exam Quality Assessment: No: Supplemental Oxygen General: Alert, Oriented, Cooperative, No Acute Distress Lungs: Normal Respiratory Effort GI/Abdominal Exam: Soft, No Distention, Tender Extremities: No Pedal Edema Skin: Warm, Dry Psy/Mental Status: Alert, Normal Affect - Problem List & Annotations (1) Acute pancreatitis SNOMED Code(s): 645491439 Code(s): K85.90 - ACUTE PANCREATITIS WITHOUT NECROSIS OR INFECTION, UNSP Status: Acute Current Visit: Yes Qualifiers: Pancreatitis type: alcohol induced Acute pancreatitis complication: no infection or necrosis Qualified Code(s): K85.20 - Alcohol induced acute pancreatitis without necrosis or infection (2) Alcohol dependence SNOMED Code(s): 24635338 Code(s): F10.20 - ALCOHOL DEPENDENCE, UNCOMPLICATED Status: Chronic Current Visit: Yes Qualifiers: Substance use status: uncomplicated Qualified Code(s): F10.20 - Alcohol dependence, uncomplicated (3) Tobacco dependence SNOMED Code(s): 93560429 Code(s): F17.200 - NICOTINE DEPENDENCE, UNSPECIFIED, UNCOMPLICATED Status: Chronic Current Visit: Yes - Problem List Review Problem List Initiated/Reviewed/Updated: Yes - My Orders Last 24 Hours: My Active Orders 11/21/18 09:00 Aspirin [Halfprin] 81 mg PO DAILY Folic Acid 1 mg PO DAILY NIFEdipine [Procardia XL] 60 mg PO DAILY Ramipril [Altace] 5 mg PO DAILY Thiamine [Vitamin B-1] 100 mg PO DAILY 11/21/18 17:49 HYDROmorphone [Dilaudid] 1 mg IVPUSH Q2H PRN 11/21/18 17:57 Incentive Spirometry [RT Incentive Spirometry] [RC] Q1HWA 11/21/18 18:00 Gabapentin [Neurontin] 400 mg PO TID 11/22/18 10:00 Magnesium Sulfate/Water [Magnesium Sulfate in Water Premix] 2 gm Premix Bag 1 bag IV Q6H 11/23/18 05:00 BASIC METABOLIC PANEL,BMP [CHEM] Timed CBC W/O DIFF,HEMOGRAM [HEME] Timed (1) LIPASE [CHEM] Timed - Plan Plan:: ASSESSMENT AND PLAN - Acute pancreatitis - alcohol-induced. History of similar about 2 months ago. Pain control steadily improving and lipase is trending down. -continue IV fluids -Symptomatic management of pain and nausea, currently utilizing gabapentin and Toradol -Repeat lipase in the morning Alcohol dependence - long history of heavy alcohol use. He will return for inpatient alcohol treatment after his hospital stay. No evidence for alcohol withdrawal. -Outpatient alcohol treatment when stable Tobacco dependence - no interest in quitting at this time. -Nicotine patch -Encourage cessation Maintenance issues - - DVT prophylaxis - mechanical - GI prophylaxis - PPI - Nutrition - nothing by mouth Disposition - I would anticipate discharge to inpatient treatment after the hospital stay Primary care physician - no local primary care Javier Blake M.D.
[2018-11-22] MEDS: Magnesium Sulfate/Water 2 GM in Premix Bag 1 BAG IV SCH ×2 (10:23→16:19)
[2018-11-22] MEDS: Pantoprazole 40 MG Vial IV SCH (12:42)
[2018-11-22] MEDS: traZODone 50 MG Tab PO PRN (22:22)
[2018-11-23] MEDS: Dextrose 5%-Lact Ringers w/KCl 1,000 ML IV SCH (01:54)
[2018-11-23] MEDS: HYDROmorphone 1 MG/ML Syringe IVPUSH PRN ×2 (03:09→08:05)
[2018-11-23] MEDS: Ketorolac 30 MG/ML SDV IVPUSH PRN ×3 (06:42→19:39)
[2018-11-23] MEDS: Folic Acid 1 MG Tab PO SCH (08:32)
[2018-11-23] MEDS: Aspirin 81 MG Tab.EC PO SCH (08:32)
[2018-11-23] MEDS: NIFEdipine 30 MG Tab.ER PO SCH (08:32)
[2018-11-23] MEDS: Gabapentin 400 MG Cap PO SCH ×3 (08:32→21:07)
[2018-11-23] MEDS: Nicotine 21 MG/24 Hr Patch TRDERM SCH (08:33)
[2018-11-23] MEDS: Thiamine 100 MG Tab PO SCH (08:33)
[2018-11-23] MEDS ORDERED: Dextrose 5%-Lact Ringers w/KCl 1,000 ML IV SCH (10:15)
[2018-11-23] MEDS: oxyCODONE 5 MG Tab PO PRN ×4 (10:19→23:48)
--- NOTE | 2018-11-23 11:11 | PCM.PN ---
- General Info Date of Service: 11/23/18 Subjective Update: no acute events overnight. Abdominal pain is much better today but he still rates it at about 4 out of 10. No complaints of nausea. Appetite is starting to return. No fevers. Lipase level much better today at below 700. Functional Status: Reports: Pain Controlled - Review of Systems General: Denies: Fever Gastrointestinal: Reports: Abdominal Pain - Patient Data Vitals - Most Recent: Last Vital Signs Temp 35.7 C 11/23/18 10:20 Pulse 60 11/23/18 10:20 Resp 18 11/23/18 10:20 BP 113/73 11/23/18 10:20 Pulse Ox 95 11/23/18 10:20 Weight - Most Recent: 69.2 kg I&O - Last 24 Hours: Intake & Output 11/22/18 11/23/18 11/23/18 22:59 06:59 14:59 Intake Total 502 1164 Output Total 225 1200 Balance 277 -36 Lab Results Last 24 Hours: Laboratory Results - last 24 hr 11/23/18 11/23/18 Range/Units 04:37 04:37 WBC 7.5 (4.5-11.0) K/uL RBC 3.68 L (4.30-5.90) M/uL Hgb 12.5 (12.0-15.0) g/dL Hct 38.2 L (40.0-54.0) % MCV 104 H (80-98) fL MCH 34 H (27-31) pg MCHC 33 (32-36) % Plt Count 173 (150-400) K/uL Sodium 137 L (140-148) mmol/L Potassium 4.4 (3.6-5.2) mmol/L Chloride 102 (100-108) mmol/L Carbon Dioxide 29 (21-32) mmol/L Anion Gap 10.4 (5.0-14.0) mmol/L BUN 8 D (7-18) mg/dL Creatinine 0.7 L (0.8-1.3) mg/dL Est Cr Clr Drug Dosing 126.90 mL/min Estimated GFR (MDRD) > 60 (>60) Glucose 103 (74-106) mg/dL Calcium 8.9 (8.5-10.1) mg/dL Lipase 682 H (73-393) U/L Med Orders - Current: Current Medications Acetaminophen (Tylenol) 650 mg PO Q4H PRN PRN Reason: Pain (Mild 1-3)/fever Last Admin: 11/21/18 08:40 Dose: 650 mg Aspirin (Halfprin) 81 mg PO DAILY [facility] Last Admin: 11/23/18 08:32 Dose: 81 mg Folic Acid (Folic Acid) 1 mg PO DAILY [facility] Last Admin: 11/23/18 08:32 Dose: 1 mg Gabapentin (Neurontin) 400 mg PO TID [facility] Last Admin: 11/23/18 08:32 Dose: 400 mg Potassium Cl/Dextrose/Lact Ringer's (D5 Lr With 20 Meq Kcl) 1,000 mls @ 50 mls/ hr IV ASDIRECTED [facility] Ketorolac Tromethamine (Toradol) 30 mg IVPUSH Q6H PRN PRN Reason: Pain (moderate 4-6) Stop: 11/25/18 10:27 Last Admin: 11/23/18 06:42 Dose: 30 mg Lorazepam (Ativan) 0.5 mg IVPUSH Q4H PRN PRN Reason: Anxiety Magnesium Hydroxide (Milk Of Magnesia) 30 ml PO Q12H PRN PRN Reason: Constipation Melatonin (Melatonin) 9 mg PO BEDTIME PRN PRN Reason: Sleep Nicotine (Habitrol) 21 mg TRDERM DAILY [facility] Last Admin: 11/23/18 08:33 Dose: 21 mg Nifedipine (Procardia Xl) 60 mg PO DAILY [facility] Last Admin: 11/23/18 08:32 Dose: 60 mg Ondansetron HCl (Zofran Odt) 4 mg PO Q6H PRN PRN Reason: Nausea able to take PO Ondansetron HCl (Zofran) 4 mg IV Q6H PRN PRN Reason: Nausea/Vomiting Last Admin: 11/21/18 11:50 Dose: 4 mg Oxycodone HCl (Oxycodone) 5 mg PO Q4H PRN PRN Reason: Pain (moderate 4-6) Last Admin: 11/23/18 10:19 Dose: 5 mg Ramipril (Altace) 5 mg PO DAILY [facility] Last Admin: 11/23/18 08:32 Dose: 5 mg Senna/Docusate Sodium (Senna Plus) 1 tab PO BID PRN PRN Reason: Constipation Thiamine HCl (Vitamin B-1) 100 mg PO DAILY [facility] Last Admin: 11/23/18 08:33 Dose: 100 mg Trazodone HCl (Trazodone) 50 mg PO BEDTIME PRN PRN Reason: Sleep Last Admin: 11/22/18 22:22 Dose: 50 mg Discontinued Medications Fentanyl (Sublimaze) 25 mcg IVPUSH Q2H PRN PRN Reason: Pain (severe 7-10) Last Admin: 11/21/18 13:26 Dose: 25 mcg Fentanyl (Sublimaze) 50 mcg IVPUSH Q2H PRN PRN Reason: Pain (severe 7-10) Last Admin: 11/21/18 16:00 Dose: 50 mcg Hydromorphone HCl (Dilaudid) 1 mg IVPUSH Q2H PRN PRN Reason: Abdominal Pain Last Admin: 11/23/18 08:05 Dose: 1 mg Multivitamins/Minerals 10 ml/Thiamine HCl 200 mg/ Chromium/Copper/Manganese/ Seleni/Zn 1 ml/ Lactated Ringer's 1,013 mls @ 500 mls/hr IV ONETIME ONE Stop: 11/20/18 12:07 Last Admin: 11/20/18 10:24 Dose: 500 mls/hr Potassium Cl/Dextrose/Lact Ringer's (D5 Lr With 20 Meq Kcl) 1,000 mls @ 100 mls /hr IV ASDIRECTED [facility] Last Admin: 11/23/18 01:54 Dose: 100 mls/hr Potassium Chloride 20 meq/Lidocaine HCl 2 ml/ Sodium Chloride 112 mls @ 50 mls/ hr IV Q2H [facility] Stop: 11/20/18 16:59 Last Admin: 11/20/18 15:15 Dose: 50 mls/hr Potassium Chloride 20 meq/Lidocaine HCl 2 ml/ Sodium Chloride 112 mls @ 50 mls/ hr IV Q2H [facility] Stop: 11/21/18 14:59 Last Admin: 11/21/18 13:21 Dose: 50 mls/hr Magnesium Sulfate 2 gm/ Premix 50 mls @ 12.5 mls/hr IV Q6H [facility] Stop: 11/22/18 19:59 Last Admin: 11/22/18 16:19 Dose: 12.5 mls/hr Oxycodone HCl (Oxycodone) 5 mg PO Q4H PRN PRN Reason: Pain (moderate 4-6) Last Admin: 11/21/18 08:39 Dose: 5 mg Pantoprazole Sodium (Protonix Iv) 40 mg IV Q24H [facility] Last Admin: 11/22/18 12:42 Dose: 40 mg - Exam Quality Assessment: No: Supplemental Oxygen General: Alert, Oriented, Cooperative, No Acute Distress Lungs: Normal Respiratory Effort GI/Abdominal Exam: Soft, No Distention Extremities: No Pedal Edema Psy/Mental Status: Alert, Normal Affect - Problem List & Annotations (1) Acute pancreatitis SNOMED Code(s): 496229039 Code(s): K85.90 - ACUTE PANCREATITIS WITHOUT NECROSIS OR INFECTION, UNSP Status: Acute Current Visit: Yes Qualifiers: Pancreatitis type: alcohol induced Acute pancreatitis complication: no infection or necrosis Qualified Code(s): K85.20 - Alcohol induced acute pancreatitis without necrosis or infection (2) Alcohol dependence SNOMED Code(s): 88136412 Code(s): F10.20 - ALCOHOL DEPENDENCE, UNCOMPLICATED Status: Chronic Current Visit: Yes Qualifiers: Substance use status: uncomplicated Qualified Code(s): F10.20 - Alcohol dependence, uncomplicated (3) Tobacco dependence SNOMED Code(s): 34454485 Code(s): F17.200 - NICOTINE DEPENDENCE, UNSPECIFIED, UNCOMPLICATED Status: Chronic Current Visit: Yes - Problem List Review Problem List Initiated/Reviewed/Updated: Yes - My Orders Last 24 Hours: My Active Orders 11/23/18 10:09 oxyCODONE 5 mg PO Q4H PRN 11/23/18 10:15 Dextrose 5%-Lact Ringers w/KCl [D5 LR with 20 mEq KCl] 1,000 ml IV ASDIRECTED 11/23/18 Lunch Clear Liquid Diet [DIET] 11/24/18 05:00 LIPASE [CHEM] Timed - Plan Plan:: ASSESSMENT AND PLAN - Acute pancreatitis - alcohol-induced. History of similar about 2 months ago. Pain control steadily improving and lipase has nearly normalized. -gentle IV fluids -Symptomatic management of pain and nausea, currently utilizing gabapentin and Toradol -Repeat lipase in the morning -trial of clear liquids Alcohol dependence - long history of heavy alcohol use. He will return for inpatient alcohol treatment after his hospital stay. No evidence for alcohol withdrawal. -Outpatient alcohol treatment when stable Tobacco dependence - no interest in quitting at this time. -Nicotine patch -Encourage cessation Maintenance issues - - DVT prophylaxis - mechanical - GI prophylaxis - PPI - Nutrition - clear liquids Disposition - I would anticipate discharge to inpatient treatment after the hospital stay Primary care physician - no local primary care Javier Blake M.D.
[2018-11-23] MEDS: traZODone 50 MG Tab PO PRN (23:48)
[2018-11-24] MEDS: Ketorolac 30 MG/ML SDV IVPUSH PRN ×2 (02:32→08:57)
[2018-11-24] MEDS: oxyCODONE 5 MG Tab PO PRN ×2 (05:50→11:16)
[2018-11-24] MEDS: Magnesium Hydroxide 400 MG/5 ML Susp 30 ML Cup PO PRN (08:55)
[2018-11-24] MEDS: Nicotine 21 MG/24 Hr Patch TRDERM SCH (08:55)
[2018-11-24] MEDS: Gabapentin 400 MG Cap PO SCH ×3 (08:55→22:07)
[2018-11-24] MEDS: Folic Acid 1 MG Tab PO SCH (08:56)
[2018-11-24] MEDS: Thiamine 100 MG Tab PO SCH (08:56)
[2018-11-24] MEDS: Aspirin 81 MG Tab.EC PO SCH (08:56)
[2018-11-24] MEDS: NIFEdipine 30 MG Tab.ER PO SCH (08:57)
--- NOTE | 2018-11-24 09:05 | PCM.PN ---
- General Info Date of Service: 11/24/18 Subjective Update: There were no acute events overnight. Upper abdominal pain is better but he has developed some lower abdominal pain. He has not had any nausea. He does report that he has not had a bowel movement for several days. No fevers. Lipase level has improved further but not quite normalize. Tolerating clear liquids well. Functional Status: Reports: Pain Controlled, Tolerating Diet - Review of Systems General: Denies: Fever Gastrointestinal: Reports: Abdominal Pain, Constipation - Patient Data Vitals - Most Recent: Last Vital Signs Temp 36.3 C 11/24/18 07:28 Pulse 48 L 11/24/18 07:33 Resp 18 11/24/18 07:28 BP 132/77 11/24/18 08:57 Pulse Ox 97 11/24/18 07:28 Weight - Most Recent: 69.2 kg I&O - Last 24 Hours: Intake & Output 11/23/18 11/24/18 11/24/18 22:59 06:59 14:59 Intake Total 1176 811 Balance 1176 811 Lab Results Last 24 Hours: Laboratory Results - last 24 hr 11/24/18 Range/Units 05:25 Lipase 469 H (73-393) U/L Med Orders - Current: Current Medications Acetaminophen (Tylenol) 650 mg PO Q4H PRN PRN Reason: Pain (Mild 1-3)/fever Last Admin: 11/21/18 08:40 Dose: 650 mg Aspirin (Halfprin) 81 mg PO DAILY [facility] Last Admin: 11/24/18 08:56 Dose: 81 mg Folic Acid (Folic Acid) 1 mg PO DAILY [facility] Last Admin: 11/24/18 08:56 Dose: 1 mg Gabapentin (Neurontin) 400 mg PO TID [facility] Last Admin: 11/24/18 08:55 Dose: 400 mg Ketorolac Tromethamine (Toradol) 30 mg IVPUSH Q6H PRN PRN Reason: Pain (moderate 4-6) Stop: 11/25/18 10:27 Last Admin: 11/24/18 08:57 Dose: 30 mg Lorazepam (Ativan) 0.5 mg IVPUSH Q4H PRN PRN Reason: Anxiety Magnesium Hydroxide (Milk Of Magnesia) 30 ml PO Q12H PRN PRN Reason: Constipation Last Admin: 11/24/18 08:55 Dose: 30 ml Melatonin (Melatonin) 9 mg PO BEDTIME PRN PRN Reason: Sleep Nicotine (Habitrol) 21 mg TRDERM DAILY [facility] Last Admin: 11/24/18 08:55 Dose: 21 mg Nifedipine (Procardia Xl) 60 mg PO DAILY [facility] Last Admin: 11/24/18 08:57 Dose: 60 mg Ondansetron HCl (Zofran Odt) 4 mg PO Q6H PRN PRN Reason: Nausea able to take PO Ondansetron HCl (Zofran) 4 mg IV Q6H PRN PRN Reason: Nausea/Vomiting Last Admin: 11/21/18 11:50 Dose: 4 mg Oxycodone HCl (Oxycodone) 5 mg PO Q4H PRN PRN Reason: Pain (moderate 4-6) Last Admin: 11/24/18 05:50 Dose: 5 mg Ramipril (Altace) 5 mg PO DAILY [facility] Last Admin: 11/24/18 08:56 Dose: 5 mg Senna/Docusate Sodium (Senna Plus) 1 tab PO BID PRN PRN Reason: Constipation Last Admin: 11/24/18 08:55 Dose: 1 tab Thiamine HCl (Vitamin B-1) 100 mg PO DAILY [facility] Last Admin: 11/24/18 08:56 Dose: 100 mg Trazodone HCl (Trazodone) 50 mg PO BEDTIME PRN PRN Reason: Sleep Last Admin: 11/23/18 23:48 Dose: 50 mg Discontinued Medications Fentanyl (Sublimaze) 25 mcg IVPUSH Q2H PRN PRN Reason: Pain (severe 7-10) Last Admin: 11/21/18 13:26 Dose: 25 mcg Fentanyl (Sublimaze) 50 mcg IVPUSH Q2H PRN PRN Reason: Pain (severe 7-10) Last Admin: 11/21/18 16:00 Dose: 50 mcg Hydromorphone HCl (Dilaudid) 1 mg IVPUSH Q2H PRN PRN Reason: Abdominal Pain Last Admin: 11/23/18 08:05 Dose: 1 mg Multivitamins/Minerals 10 ml/Thiamine HCl 200 mg/ Chromium/Copper/Manganese/ Seleni/Zn 1 ml/ Lactated Ringer's 1,013 mls @ 500 mls/hr IV ONETIME ONE Stop: 11/20/18 12:07 Last Admin: 11/20/18 10:24 Dose: 500 mls/hr Potassium Cl/Dextrose/Lact Ringer's (D5 Lr With 20 Meq Kcl) 1,000 mls @ 100 mls /hr IV ASDIRECTED [facility] Last Admin: 11/23/18 01:54 Dose: 100 mls/hr Potassium Chloride 20 meq/Lidocaine HCl 2 ml/ Sodium Chloride 112 mls @ 50 mls/ hr IV Q2H [facility] Stop: 11/20/18 16:59 Last Admin: 11/20/18 15:15 Dose: 50 mls/hr Potassium Chloride 20 meq/Lidocaine HCl 2 ml/ Sodium Chloride 112 mls @ 50 mls/ hr IV Q2H [facility] Stop: 11/21/18 14:59 Last Admin: 11/21/18 13:21 Dose: 50 mls/hr Magnesium Sulfate 2 gm/ Premix 50 mls @ 12.5 mls/hr IV Q6H [facility] Stop: 11/22/18 19:59 Last Admin: 11/22/18 16:19 Dose: 12.5 mls/hr Potassium Cl/Dextrose/Lact Ringer's (D5 Lr With 20 Meq Kcl) 1,000 mls @ 50 mls/ hr IV ASDIRECTED [facility] Last Admin: 11/23/18 14:43 Dose: 50 mls/hr Oxycodone HCl (Oxycodone) 5 mg PO Q4H PRN PRN Reason: Pain (moderate 4-6) Last Admin: 11/21/18 08:39 Dose: 5 mg Pantoprazole Sodium (Protonix Iv) 40 mg IV Q24H [facility] Last Admin: 11/22/18 12:42 Dose: 40 mg - Exam Quality Assessment: No: Supplemental Oxygen General: Alert, Oriented, Cooperative, No Acute Distress Lungs: Normal Respiratory Effort GI/Abdominal Exam: Soft, No Distention Extremities: No Pedal Edema Skin: Warm, Dry Psy/Mental Status: Alert, Normal Affect - Problem List & Annotations (1) Acute pancreatitis SNOMED Code(s): 409212125 Code(s): K85.90 - ACUTE PANCREATITIS WITHOUT NECROSIS OR INFECTION, UNSP Status: Acute Current Visit: Yes Qualifiers: Pancreatitis type: alcohol induced Acute pancreatitis complication: no infection or necrosis Qualified Code(s): K85.20 - Alcohol induced acute pancreatitis without necrosis or infection (2) Alcohol dependence SNOMED Code(s): 58663456 Code(s): F10.20 - ALCOHOL DEPENDENCE, UNCOMPLICATED Status: Chronic Current Visit: Yes Qualifiers: Substance use status: uncomplicated Qualified Code(s): F10.20 - Alcohol dependence, uncomplicated (3) Tobacco dependence SNOMED Code(s): 16847790 Code(s): F17.200 - NICOTINE DEPENDENCE, UNSPECIFIED, UNCOMPLICATED Status: Chronic Current Visit: Yes - Problem List Review Problem List Initiated/Reviewed/Updated: Yes - My Orders Last 24 Hours: My Active Orders 11/23/18 10:09 oxyCODONE 5 mg PO Q4H PRN 11/24/18 09:02 Convert IV to Saline Lock [OM.PC] Routine 11/24/18 Lunch Full Liquid Diet [DIET] - Plan Plan:: ASSESSMENT AND PLAN - Acute pancreatitis - alcohol-induced. History of similar about 2 months ago. Pain has been fairly well-controlled. I suspect his lower abdominal pain is related to constipation. -Saline lock IV -Bowel stimulation -Symptomatic management of pain and nausea, currently utilizing gabapentin and Toradol -Advance to full liquids Alcohol dependence - long history of heavy alcohol use. He will return for inpatient alcohol treatment after his hospital stay. No evidence for alcohol withdrawal. -Outpatient alcohol treatment when stable Tobacco dependence - no interest in quitting at this time. -Nicotine patch -Encourage cessation Maintenance issues - - DVT prophylaxis - mechanical - GI prophylaxis - PPI - Nutrition - full liquids Disposition - I would anticipate discharge to inpatient treatment at [facility] after the hospital stay Primary care physician - no local primary care Javier Blake M.D.
[2018-11-24] MEDS: Acetaminophen 325 MG Tab PO PRN ×2 (17:18→22:09)
[2018-11-25] MEDS: Magnesium Hydroxide 400 MG/5 ML Susp 30 ML Cup PO PRN (08:12)
[2018-11-25] MEDS: Acetaminophen 325 MG Tab PO PRN ×2 (08:12→13:10)
[2018-11-25] MEDS: Thiamine 100 MG Tab PO SCH (08:13)
[2018-11-25] MEDS: Nicotine 21 MG/24 Hr Patch TRDERM SCH (08:13)
[2018-11-25] MEDS: NIFEdipine 30 MG Tab.ER PO SCH (08:13)
[2018-11-25] MEDS: Folic Acid 1 MG Tab PO SCH (08:13)
[2018-11-25] MEDS: Aspirin 81 MG Tab.EC PO SCH (08:13)
[2018-11-25] MEDS: Gabapentin 400 MG Cap PO SCH ×3 (08:13→20:55)
--- NOTE | 2018-11-25 14:14 | PCM.PN ---
- General Info Date of Service: 11/25/18 Subjective Update: Mr. Marcano has not felt as well since yesterday, mild persistent pain and general malaise. Appetite remains somewhat poor but he did not note increase in pain with eating today. Lipase level remains slightly elevated but down from yesterday. Functional Status: Reports: Tolerating Diet, Ambulating, Urinating - Review of Systems General: Reports: Weakness, Malaise. Denies: Fever, Chills, Appetite Pulmonary: Reports: No Symptoms Cardiovascular: Reports: No Symptoms Gastrointestinal: Reports: Abdominal Pain, Decreased Appetite. Denies: Difficulty Swallowing, Nausea, Vomiting - Patient Data Vitals - Most Recent: Last Vital Signs Temp 97.2 F 11/25/18 11:09 Pulse 59 L 11/25/18 11:09 Resp 18 11/25/18 11:09 BP 98/64 11/25/18 11:09 Pulse Ox 97 11/25/18 11:09 Weight - Most Recent: 152 lb 8.958 oz I&O - Last 24 Hours: Intake & Output 11/24/18 11/25/18 11/25/18 22:59 06:59 14:59 Intake Total 600 240 680 Balance 600 240 680 Med Orders - Current: Current Medications Acetaminophen (Tylenol) 650 mg PO Q4H PRN PRN Reason: Pain (Mild 1-3)/fever Last Admin: 11/25/18 13:10 Dose: 650 mg Aspirin (Halfprin) 81 mg PO DAILY [facility] Last Admin: 11/25/18 08:13 Dose: 81 mg Folic Acid (Folic Acid) 1 mg PO DAILY [facility] Last Admin: 11/25/18 08:13 Dose: 1 mg Gabapentin (Neurontin) 400 mg PO TID [facility] Last Admin: 11/25/18 13:10 Dose: 400 mg Lorazepam (Ativan) 0.5 mg IVPUSH Q4H PRN PRN Reason: Anxiety Magnesium Hydroxide (Milk Of Magnesia) 30 ml PO Q12H PRN PRN Reason: Constipation Last Admin: 11/25/18 08:12 Dose: 30 ml Melatonin (Melatonin) 9 mg PO BEDTIME PRN PRN Reason: Sleep Nicotine (Habitrol) 21 mg TRDERM DAILY [facility] Last Admin: 11/25/18 08:13 Dose: 21 mg Nifedipine (Procardia Xl) 60 mg PO DAILY [facility] Last Admin: 11/25/18 08:13 Dose: 60 mg Ondansetron HCl (Zofran Odt) 4 mg PO Q6H PRN PRN Reason: Nausea able to take PO Last Admin: 11/25/18 09:49 Dose: 4 mg Ondansetron HCl (Zofran) 4 mg IV Q6H PRN PRN Reason: Nausea/Vomiting Last Admin: 11/21/18 11:50 Dose: 4 mg Oxycodone HCl (Oxycodone) 5 mg PO Q4H PRN PRN Reason: Pain (moderate 4-6) Last Admin: 11/24/18 11:16 Dose: 5 mg Ramipril (Altace) 5 mg PO DAILY [facility] Last Admin: 11/25/18 08:12 Dose: 5 mg Senna/Docusate Sodium (Senna Plus) 1 tab PO BID PRN PRN Reason: Constipation Last Admin: 11/25/18 08:12 Dose: 1 tab Thiamine HCl (Vitamin B-1) 100 mg PO DAILY [facility] Last Admin: 11/25/18 08:13 Dose: 100 mg Trazodone HCl (Trazodone) 50 mg PO BEDTIME PRN PRN Reason: Sleep Last Admin: 11/23/18 23:48 Dose: 50 mg Discontinued Medications Fentanyl (Sublimaze) 25 mcg IVPUSH Q2H PRN PRN Reason: Pain (severe 7-10) Last Admin: 11/21/18 13:26 Dose: 25 mcg Fentanyl (Sublimaze) 50 mcg IVPUSH Q2H PRN PRN Reason: Pain (severe 7-10) Last Admin: 11/21/18 16:00 Dose: 50 mcg Hydromorphone HCl (Dilaudid) 1 mg IVPUSH Q2H PRN PRN Reason: Abdominal Pain Last Admin: 11/23/18 08:05 Dose: 1 mg Multivitamins/Minerals 10 ml/Thiamine HCl 200 mg/ Chromium/Copper/Manganese/ Seleni/Zn 1 ml/ Lactated Ringer's 1,013 mls @ 500 mls/hr IV ONETIME ONE Stop: 11/20/18 12:07 Last Admin: 11/20/18 10:24 Dose: 500 mls/hr Potassium Cl/Dextrose/Lact Ringer's (D5 Lr With 20 Meq Kcl) 1,000 mls @ 100 mls /hr IV ASDIRECTED [facility] Last Admin: 11/23/18 01:54 Dose: 100 mls/hr Potassium Chloride 20 meq/Lidocaine HCl 2 ml/ Sodium Chloride 112 mls @ 50 mls/ hr IV Q2H [facility] Stop: 11/20/18 16:59 Last Admin: 11/20/18 15:15 Dose: 50 mls/hr Potassium Chloride 20 meq/Lidocaine HCl 2 ml/ Sodium Chloride 112 mls @ 50 mls/ hr IV Q2H [facility] Stop: 11/21/18 14:59 Last Admin: 11/21/18 13:21 Dose: 50 mls/hr Magnesium Sulfate 2 gm/ Premix 50 mls @ 12.5 mls/hr IV Q6H [facility] Stop: 11/22/18 19:59 Last Admin: 11/22/18 16:19 Dose: 12.5 mls/hr Potassium Cl/Dextrose/Lact Ringer's (D5 Lr With 20 Meq Kcl) 1,000 mls @ 50 mls/ hr IV ASDIRECTED [facility] Last Admin: 11/23/18 14:43 Dose: 50 mls/hr Ketorolac Tromethamine (Toradol) 30 mg IVPUSH Q6H PRN PRN Reason: Pain (moderate 4-6) Stop: 11/25/18 10:27 Last Admin: 11/24/18 08:57 Dose: 30 mg Oxycodone HCl (Oxycodone) 5 mg PO Q4H PRN PRN Reason: Pain (moderate 4-6) Last Admin: 11/21/18 08:39 Dose: 5 mg Pantoprazole Sodium (Protonix Iv) 40 mg IV Q24H [facility] Last Admin: 11/22/18 12:42 Dose: 40 mg - Exam Quality Assessment: DVT Prophylaxis General: Alert, Oriented, Cooperative, Mild Distress Neck: Other Lungs: Clear to Auscultation Cardiovascular: Regular Rate, Regular Rhythm, No Murmurs GI/Abdominal Exam: Soft, No Organomegaly, Tender. No: Distended, Guarding, Rigid, Rebound Extremities: Non-Tender, No Pedal Edema - Problem List Review Problem List Initiated/Reviewed/Updated: Yes - My Orders Last 24 Hours: My Active Orders 11/25/18 Breakfast Regular Diet [DIET] 11/26/18 05:00 LIPASE [CHEM] Timed - Plan Plan:: ASSESSMENT AND PLAN - Acute pancreatitis - alcohol-induced. History of similar about 2 months ago. Pain has been fairly well-controlled. I suspect his lower abdominal pain is related to constipation. -Saline lock IV -Bowel stimulation -Symptomatic management of pain and nausea, currently utilizing gabapentin and Toradol -Advance to regular diet Alcohol dependence - long history of heavy alcohol use. He will return for inpatient alcohol treatment after his hospital stay. No evidence for alcohol withdrawal. -Outpatient alcohol treatment when stable Tobacco dependence - no interest in quitting at this time. -Nicotine patch -Encourage cessation Maintenance issues - - DVT prophylaxis - mechanical - GI prophylaxis - PPI - Nutrition - full liquids Disposition - I would anticipate discharge to inpatient treatment [facility] after the hospital stay Primary care physician - no local primary care
[2018-11-25] MEDS ORDERED: Polyethylene Glycol 3350 Powder 17 GM Packet PO ONE (15:00)
[2018-11-26] MEDS: Nicotine 21 MG/24 Hr Patch TRDERM SCH (09:45)
[2018-11-26] MEDS: Gabapentin 400 MG Cap PO SCH ×2 (11:15→13:47)
[2018-11-26] MEDS: Aspirin 81 MG Tab.EC PO SCH (11:15)
[2018-11-26] MEDS: NIFEdipine 30 MG Tab.ER PO SCH (11:15)
[2018-11-26] MEDS: Thiamine 100 MG Tab PO SCH (11:15)
[2018-11-26] MEDS: Folic Acid 1 MG Tab PO SCH (11:15)
--- NOTE | 2018-11-26 12:16 | PCM.DCSUM1 ---
Discharge Summary - Hospital Course Brief History: Mr. Marcano is a 43-year-old gentleman who presented to the emergency department with symptoms of abdominal pain and nausea present for approximately 36 hours, secondary to pancreatitis. - Discharge Data Discharge Date: 11/26/18 Discharge Disposition: DC/Tfer to Inpt Rehab Fac 62 Condition: Fair - Discharge Diagnosis/Problem(s) (1) Acute pancreatitis SNOMED Code(s): 051575285 ICD Code: K85.90 - ACUTE PANCREATITIS WITHOUT NECROSIS OR INFECTION, UNSP Status: Acute Current Visit: Yes Qualifiers: Pancreatitis type: alcohol induced Acute pancreatitis complication: no infection or necrosis Qualified Code(s): K85.20 - Alcohol induced acute pancreatitis without necrosis or infection (2) Alcohol dependence SNOMED Code(s): 63543990 ICD Code: F10.20 - ALCOHOL DEPENDENCE, UNCOMPLICATED Status: Chronic Current Visit: Yes Qualifiers: Substance use status: uncomplicated Qualified Code(s): F10.20 - Alcohol dependence, uncomplicated - Patient Summary/Data Hospital Course: Mr. Marcano presented to the emergency room from [facility] with complaints of abdominal pain that has been present and worsening over the past 36 hours. Initially the pain was sharp but mild and located in the epigastric area. The pain has progressed to the point that it is severe and nearly constant. It radiates to both the left and right portions of the upper abdomen. The pain is worse with any sort of movement or coughing. Pain is a little better when he lays on his left side and when he uses a hot water bottle over the painful area. He had a similar episode 2 months ago and was in the hospital for a few days. He does not feel short of breath. He has not had any fevers. No change in bowel or bladder habits. He has been drinking about one case of beer per day since he got out of the hospital 2 months ago. His last drink was Sunday morning, 2 days ago. He has been in detox for the past 2 days. He does not feel that he is experiencing alcohol withdrawal at this time. He does smoke about 2 packs of cigarettes per day. Workup in the emergency room was suggestive of pancreatitis with elevated amylase and lipase. His white count is normal. Vital signs are stable. He is receiving a multivitamin bag and will be admitted for further management of pancreatitis. On admission Mr. Marcano was kept nothing by mouth and given IV fluids for hydration as well as pain medication as needed. Pain and lipase level gradually improved over the next several days of hospitalization. By the time of discharge he was tolerating a regular diet and had mild residual pain in his upper abdomen. Lipase level was significantly elevated on admission, but the time of discharge it had improved significantly but not totally normalized. Activity will be as tolerated and he will resume his usual diet. He will be discharged to inpatient chemical dependency treatment. He is instructed to avoid all further alcohol use. Follow-up appointment should be scheduled with his primary care provider after he has completed chemical dependency treatment. - Patient Instructions Diet: Usual Diet as Tolerated Activity: As Tolerated Other/Special Instructions: Patient will be discharged to inpatient chemical dependency treatment. - Discharge Plan *PRESCRIPTION DRUG MONITORING PROGRAM REVIEWED*: Not Applicable *COPY OF PRESCRIPTION DRUG MONITORING REPORT IN PATIENT MARTHA: Not Applicable Home Medications: Home Meds Aspirin [Lo-Dose Aspirin EC] 81 mg PO DAILY 11/20/18 [History] NIFEdipine [Procardia XL] 60 mg PO DAILY 11/20/18 [History] Naltrexone 50 mg PO DAILY 11/20/18 [History] Ramipril [Altace] 5 mg PO DAILY 11/20/18 [History] Referrals: Sergo Chapman MD [Primary Care Provider] - - Discharge Summary/Plan Comment DC Time >30 min.: No - Patient Data Vitals - Most Recent: Last Vital Signs Temp 96.4 F 11/26/18 11:58 Pulse 49 L 11/26/18 11:58 Resp 12 11/26/18 11:58 BP 120/72 11/26/18 11:58 Pulse Ox 97 11/26/18 11:58 Weight - Most Recent: 152 lb 8.958 oz I&O - Last 24 hours: Intake & Output 11/25/18 11/26/18 11/26/18 22:59 06:59 14:59 Intake Total 1330 800 Output Total 200 350 Balance 1130 450 Lab Results - Last 24 hrs: Laboratory Results - last 24 hr 11/26/18 Range/Units 04:50 Lipase 567 H (73-393) U/L Med Orders - Current: Current Medications Acetaminophen (Tylenol) 650 mg PO Q4H PRN PRN Reason: Pain (Mild 1-3)/fever Last Admin: 11/25/18 13:10 Dose: 650 mg Aspirin (Halfprin) 81 mg PO DAILY [facility] Last Admin: 11/26/18 11:15 Dose: 81 mg Folic Acid (Folic Acid) 1 mg PO DAILY [facility] Last Admin: 11/26/18 11:15 Dose: 1 mg Gabapentin (Neurontin) 400 mg PO TID [facility] Last Admin: 11/26/18 11:15 Dose: 400 mg Lorazepam (Ativan) 0.5 mg IVPUSH Q4H PRN PRN Reason: Anxiety Magnesium Hydroxide (Milk Of Magnesia) 30 ml PO Q12H PRN PRN Reason: Constipation Last Admin: 11/25/18 08:12 Dose: 30 ml Melatonin (Melatonin) 9 mg PO BEDTIME PRN PRN Reason: Sleep Nicotine (Habitrol) 21 mg TRDERM DAILY [facility] Last Admin: 11/25/18 08:13 Dose: 21 mg Nifedipine (Procardia Xl) 60 mg PO DAILY [facility] Last Admin: 11/26/18 11:15 Dose: 60 mg Ondansetron HCl (Zofran Odt) 4 mg PO Q6H PRN PRN Reason: Nausea able to take PO Last Admin: 11/25/18 09:49 Dose: 4 mg Ondansetron HCl (Zofran) 4 mg IV Q6H PRN PRN Reason: Nausea/Vomiting Last Admin: 11/21/18 11:50 Dose: 4 mg Oxycodone HCl (Oxycodone) 5 mg PO Q4H PRN PRN Reason: Pain (moderate 4-6) Last Admin: 11/24/18 11:16 Dose: 5 mg Ramipril (Altace) 5 mg PO DAILY [facility] Last Admin: 11/25/18 08:12 Dose: 5 mg Senna/Docusate Sodium (Senna Plus) 1 tab PO BID PRN PRN Reason: Constipation Last Admin: 11/25/18 08:12 Dose: 1 tab Thiamine HCl (Vitamin B-1) 100 mg PO DAILY [facility] Last Admin: 11/26/18 11:15 Dose: 100 mg Trazodone HCl (Trazodone) 50 mg PO BEDTIME PRN PRN Reason: Sleep Last Admin: 11/23/18 23:48 Dose: 50 mg Discontinued Medications Fentanyl (Sublimaze) 25 mcg IVPUSH Q2H PRN PRN Reason: Pain (severe 7-10) Last Admin: 11/21/18 13:26 Dose: 25 mcg Fentanyl (Sublimaze) 50 mcg IVPUSH Q2H PRN PRN Reason: Pain (severe 7-10) Last Admin: 11/21/18 16:00 Dose: 50 mcg Hydromorphone HCl (Dilaudid) 1 mg IVPUSH Q2H PRN PRN Reason: Abdominal Pain Last Admin: 11/23/18 08:05 Dose: 1 mg Multivitamins/Minerals 10 ml/Thiamine HCl 200 mg/ Chromium/Copper/Manganese/ Seleni/Zn 1 ml/ Lactated Ringer's 1,013 mls @ 500 mls/hr IV ONETIME ONE Stop: 11/20/18 12:07 Last Admin: 11/20/18 10:24 Dose: 500 mls/hr Potassium Cl/Dextrose/Lact Ringer's (D5 Lr With 20 Meq Kcl) 1,000 mls @ 100 mls /hr IV ASDIRECTED [facility] Last Admin: 11/23/18 01:54 Dose: 100 mls/hr Potassium Chloride 20 meq/Lidocaine HCl 2 ml/ Sodium Chloride 112 mls @ 50 mls/ hr IV Q2H [facility] Stop: 11/20/18 16:59 Last Admin: 11/20/18 15:15 Dose: 50 mls/hr Potassium Chloride 20 meq/Lidocaine HCl 2 ml/ Sodium Chloride 112 mls @ 50 mls/ hr IV Q2H [facility] Stop: 11/21/18 14:59 Last Admin: 11/21/18 13:21 Dose: 50 mls/hr Magnesium Sulfate 2 gm/ Premix 50 mls @ 12.5 mls/hr IV Q6H [facility] Stop: 11/22/18 19:59 Last Admin: 11/22/18 16:19 Dose: 12.5 mls/hr Potassium Cl/Dextrose/Lact Ringer's (D5 Lr With 20 Meq Kcl) 1,000 mls @ 50 mls/ hr IV ASDIRECTED [facility] Last Admin: 11/23/18 14:43 Dose: 50 mls/hr Ketorolac Tromethamine (Toradol) 30 mg IVPUSH Q6H PRN PRN Reason: Pain (moderate 4-6) Stop: 11/25/18 10:27 Last Admin: 11/24/18 08:57 Dose: 30 mg Oxycodone HCl (Oxycodone) 5 mg PO Q4H PRN PRN Reason: Pain (moderate 4-6) Last Admin: 11/21/18 08:39 Dose: 5 mg Pantoprazole Sodium (Protonix Iv) 40 mg IV Q24H [facility] Last Admin: 11/22/18 12:42 Dose: 40 mg Polyethylene Glycol (Miralax) 17 gm PO ONETIME ONE Stop: 11/25/18 15:01 Last Admin: 11/25/18 16:31 Dose: 17 gm - Exam General: Reports: Alert, Oriented, Cooperative, Mild Distress Lungs: Reports: Clear to Auscultation, Normal Respiratory Effort Cardiovascular: Reports: Regular Rate, Regular Rhythm, No Murmurs GI/Abdominal Exam: Soft, No Organomegaly, Tender. No: Distended, Guarding, Rigid, Rebound Extremities: Non-Tender, No Pedal Edema
== END 2018-11-26 15:30 | DRG 440 ==
LOC: JP.ED 09:00 → JP.MS 11:22
PROVIDERS: ADMIT Internal Medicine; ATTEND Hospitalist
DX: K85.20 Alcohol induced acute pancreatitis without necrosis or infection (principal); F10.20 Alcohol dependence, uncomplicated; F17.210 Nicotine dependence, cigarettes, uncomplicated; Z86.718 Personal history of other venous thrombosis and embolism; Z86.711 Personal history of pulmonary embolism; I10 Essential (primary) hypertension; K21.9 Gastro-esophageal reflux disease without esophagitis; M54.9 Dorsalgia, unspecified; G89.29 Other chronic pain; F41.9 Anxiety disorder, unspecified; F32.9 Major depressive disorder, single episode, unspecified; R01.1 Cardiac murmur, unspecified; Z79.82 Long term (current) use of aspirin; F12.90 Cannabis use, unspecified, uncomplicated; F15.90 Other stimulant use, unspecified, uncomplicated
CPT/HCPCS: 36415; 80048; 80053; 82150; 83690; 83735; 85025; 85027; 96374; 99284-25; A9270-GY; C9113; J1170; J1885; J2001; J2405; J3010; J3411; J3475; J3480; J7030; J7120